=== PATIENT | female | born 1980 | race Caucasian/White ===

== ENCOUNTER 2017-02-28 08:33 | Emergency (ER) | payer OTHER ==
[~2017-02-28] VITALS: Ht 167.6 cm; Wt 91.5 kg
[~2017-02-28 08:33] MED LIST: Z.0.NO CURRENT MEDS
[2017-02-28 08:45] VITALS: BP 139/90; PULSE 97; RESP 16; TEMP 98.8; O2SAT 99
[2017-02-28] MEDS ORDERED: MOME17I EACH NARE (10:04)
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
== END 2017-02-28 10:17 | disposition home or self-care (01) ==
LOC: PHED 08:33
DX: J30.9 Allergic rhinitis, unspecified (principal); Z72.0 Tobacco use
CPT/HCPCS: 99283

== ENCOUNTER 2017-06-07 11:50 | Emergency (ER) | payer OTHER ==
[~2017-06-07] VITALS: Ht 167.6 cm; Wt 90.4 kg
[~2017-06-07 11:50] MED LIST changes: +MOME17I EACH NARE; -Z.0.NO CURRENT MEDS
[2017-06-07 11:52] VITALS: BP 129/88; PULSE 82; RESP 16; TEMP 98.3; O2SAT 99
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
[2017-06-07] MEDS ORDERED: CYCL1TAB29 PO (13:29)
== END 2017-06-07 13:36 | disposition home or self-care (01) ==
LOC: PHEFT 11:50
DX: S29.012A Strain of muscle and tendon of back wall of thorax, initial encounter (principal); V43.52XA Car driver injured in collision with other type car in traffic accident, initial encounter; Y92.410 Unspecified street and highway as the place of occurrence of the external cause; F17.210 Nicotine dependence, cigarettes, uncomplicated
CPT/HCPCS: 99283